=== PATIENT | male | born 2000 | race Caucasian/White ===

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

== ENCOUNTER → 2022-09-21 | Outpatient (CLI) | payer BC ==
[~2022-09-21] MED LIST: Adderall Xr 2525 MG PO; Zofran Odt4 MG SL
== END | disposition home or self-care (01) ==
LOC: LAB 09:45 → LAB SHORT 09:45
DX: L08.9 Local infection of the skin and subcutaneous tissue, unspecified (principal)
CPT/HCPCS: 87070; 87147; 87205

== ENCOUNTER 2024-03-30 08:24 | Day surgery (SDC) | payer BC ==
[2024-03-30] VITALS (12 sets, daily range): BP systolic 109–147; BP diastolic 48–107
[~2024-03-30] VITALS: Ht 170.2 cm; Wt 139.0 kg
[2024-03-30] MEDS ORDERED: Ampicillin Sod/Sulbactam Sod 3 GM in NS 100 ML IV SCH (09:00)
[2024-03-30] MEDS ORDERED: Lactated Ringer's 1,000 ML IV SCH (09:00)
[2024-03-30 09:43] LABS: BASOPHILS ABSOLUTE AUTO 0.04 K/mm3 (0.00-0.23); BASOPHILS PERCENT AUTO 1 % (0-2); EOSINOPHILS ABSOLUTE AUTO 0.22 K/mm3 (0.00-0.68); EOSINOPHILS PERCENT AUTO 3 % (0-6); Hematocrit 44.9 % (37.0-53.0); Hemoglobin 14.8 g/dL (13.5-17.5); IMMATURE GRAN ABSOLUTE AUTO 0.03 K/mm3 (0.00-0.10); IMMATURE GRAN PERCENT AUTO 0 % (0-1); LYMPHOCYTES ABSOLUTE AUTO 2.15 K/mm3 (0.84-5.20); LYMPHOCYTES PERCENT AUTO 32 % (21-46); MONOCYTES PERCENT AUTO 12 % (4-13); Mean Corpuscular Volume 88 fL (80-100); Mean Platelet Volume 11.1 fL (9.1-12.4); NEUTROPHILS ABSOLUTE AUTO 3.54 K/mm3 (1.96-9.15); NEUTROPHILS PERCENT AUTO 52 % (41-73); Platelet Count 205 K/mm3 (150-400); RDW Coefficient Variation 12.6 % (11.7-14.2); RDW Standard Deviation 40.8 fL (35.1-46.3); White Blood Cell Count 6.78 K/mm3 (4.00-11.30)
[2024-03-30 10:14] LABS: Albumin, Blood 4.1 g/dL (3.4-5.0); Albumin/Globulin Ratio 1.1 (0.8-1.8); Bilirubin, Total 0.4 mg/dL (0.1-1.0); Bun/Creatinine Ratio 16.1 (12.0-20.0); Calcium, Blood 8.9 mg/dL (8.5-10.1); Creatinine, Blood 0.87 mg/dL (0.60-1.20); Globulin, Blood 3.9 g/dL (2.2-4.0); Potassium, Blood 3.8 mmol/L (3.5-5.5)
[2024-03-30] MEDS ORDERED: Bupivacaine 0.5% Inj 10 ML Vial ONE (11:30)
[2024-03-30] MEDS ORDERED: Midazolam HCl 1MG / ML 2ML Vial IV ONE (11:35)
[2024-03-30] MEDS ORDERED: FentaNYL Citrate 50 MCG/ML 2 ML Injection ONE ×3 (11:37→14:13)
[2024-03-30] MEDS ORDERED: propofoL 40 ML IV ONE (11:38)
[2024-03-30] MEDS ORDERED: Rocuronium Bromide 10 MG/ML 5ML Injection IV ONE ×2 (11:39→12:13)
[2024-03-30] MEDS ORDERED: Ondansetron HCl 2 MG / ML 2ML Vial ONE (12:14)
[2024-03-30] MEDS ORDERED: Dexamethasone Sod Phos 10 MG/ML 1ML VIAL ONE (12:14)
[2024-03-30] MEDS ORDERED: HYDROmorphone HCl/Pf 1MG SYR ONE (12:58)
[2024-03-30] MEDS ORDERED: Sugammadex Sodium 200 MG/2ML SDV (100 MG/ML) ONE (13:36)
[2024-03-30] MEDS ORDERED: OxyCODONE 5 mg/Acetamin 325 mg TABLET PO PRN (14:20)
[2024-03-30] MEDS ORDERED: Ondansetron HCl 2 MG / ML 2ML Vial IV ONE (15:15)
== END 2024-03-30 22:34 | disposition home or self-care (01) ==
LOC: ORSCMMR 08:24 → ORD 10:00 → ORSCMMR 22:34
PROVIDERS: Surgery
PROC: 0HX8XZZ Transfer Buttock Skin, External Approach (ICD-10-PCS; principal; 2024-03-30 10:00)
PROC: 0JB90ZZ Excision of Buttock Subcutaneous Tissue and Fascia, Open Approach (ICD-10-PCS; principal; 2024-03-30 10:00)
PROC: 0JX90ZB Transfer Buttock Subcutaneous Tissue and Fascia with Skin and Subcutaneous Tissue, Open Approach (ICD-10-PCS; principal; 2024-03-30 10:00)
DX: L05.01 Pilonidal cyst with abscess (principal); E66.9 Obesity, unspecified; F17.290 Nicotine dependence, other tobacco product, uncomplicated
CPT/HCPCS: 80053; 85025; 88304; 93005; 93010; A9270; J0295; J1100; J1170; J2250; J2405; J2704; J3010; J7120